=== PATIENT | male | born 1985 | race African-American/Black ===

== ENCOUNTER 2016-12-30 08:18 | Emergency (ER) | payer SELFPAY | END 2016-12-30 09:40 | disposition home or self-care (01) | LOC: D.ER 08:18 | DX: L02.411 Cutaneous abscess of right axilla (principal); F17.200 Nicotine dependence, unspecified, uncomplicated ==

== ENCOUNTER 2017-02-06 22:44 | Emergency (ER) | payer MEDICAID | END 2017-02-06 23:42 | disposition home or self-care (01) | LOC: D.ER 22:44 | DX: S81.851A Open bite, right lower leg, initial encounter (principal); W54.0XXA Bitten by dog, initial encounter; Y93.89 Activity, other specified; Y92.019 Unspecified place in single-family (private) house as the place of occurrence of the external cause ==

== ENCOUNTER 2017-03-17 10:16 | Emergency (ER) | payer MEDICAID | END 2017-03-17 11:34 | disposition home or self-care (01) | LOC: D.ER 10:16 | DX: S39.012A Strain of muscle, fascia and tendon of lower back, initial encounter (principal); X50.0XXA Overexertion from strenuous movement or load, initial encounter; Y93.89 Activity, other specified; Y92.89 Other specified places as the place of occurrence of the external cause; K64.4 Residual hemorrhoidal skin tags; E11.9 Type 2 diabetes mellitus without complications ==

== ENCOUNTER 2017-03-19 16:54 | Emergency (ER) | payer MEDICAID | END 2017-03-19 18:10 | disposition home or self-care (01) | LOC: D.ER 16:54 | DX: M54.30 Sciatica, unspecified side (principal); S39.012A Strain of muscle, fascia and tendon of lower back, initial encounter; X58.XXXA Exposure to other specified factors, initial encounter; Y93.89 Activity, other specified; Y92.89 Other specified places as the place of occurrence of the external cause; M54.5 Low back pain; E11.9 Type 2 diabetes mellitus without complications ==

== ENCOUNTER 2019-10-08 11:38 | Emergency (ER) | payer OTHER ==
[~2019-10-08] VITALS: Ht 172.7 cm; Wt 168.2 kg
[2019-10-08 11:52] VITALS: Ht 172.7 cm; Wt 168.2 kg
[2019-10-08] MEDS ORDERED: CHANTIX 1 MG TAB1 MG (11:54)
[2019-10-08] MEDS ORDERED: GEMFIBROZIL600 MG (11:54)
[2019-10-08] MEDS ORDERED: GLUCOPHAGE500 MG (11:54)
[2019-10-08 13:00] LABS: BASOPHILS 0.3 % (0-2); HEMATOCRIT 38.6 % (42.0-54.0); HEMOGLOBIN 12.2 g/dL (13.5-17.5); IMMATURE GRANULOCYTES 0.3 % (0-5); MCH 22.8 pg (26.0-34.0); MCHC 31.6 g/dL (31.0-37.0); MCV 72.3 fL (80.0-100.0); MONOCYTES 5.7 % (2-11); NEUTROPHILS 62.7 % (40-80); PLATELET COUNT 344 10x3/uL (130-400); RBC 5.34 10x6/uL (4.20-6.10); RDW 14.7 % (11.5-14.5); WBC 9.2 10x3/uL (4.8-10.8)
[2019-10-08 13:12] LABS: ANION GAP 9.6 mmol/L (8-16); CALCIUM 9.2 mg/dL (8.5-10.1); CARBON DIOXIDE 27.9 mmol/L (21.0-32.0); CREATININE - SERUM 1.3 mg/dL (0.6-1.3); POTASSIUM - SERUM 4.5 mmol/L (3.5-5.1)
[2019-10-08 13:18] LABS: BILIRUBIN - TOTAL 0.33 mg/dL (0.2-1.3); PROTEIN - SERUM 8.7 g/dL (6.4-8.2)
[2019-10-08 14:10] LABS: BACTERIA FEW /hpf (NEGATIVE); BILIRUBIN NEGATIVE (NEGATIVE); EPITHELIAL CELLS RARE /hpf (0-5); GLUCOSE NEGATIVE (NEGATIVE); KETONE NEGATIVE (NEGATIVE); NITRITE NEGATIVE (NEGATIVE); RED CELLS - URINE OCC /hpf (0-5); UROBILINOGEN NORMAL (NORMAL); WHITE CELLS - URINE NSEEN /hpf (NEGATIVE)
[2019-10-08] MEDS ORDERED: CLEOCIN HCL300 MG PO (16:35)
[2019-10-08] MEDS ORDERED: NORCO 7.5-3251 EACH GT (16:39)
[2019-10-08 18:35] VITALS: BP 164/95
== END 2019-10-08 18:35 | disposition home or self-care (01) ==
LOC: D.ER 11:38
PROVIDERS: Family Medicine
DX: L03.115 Cellulitis of right lower limb (principal); M79.604 Pain in right leg